=== PATIENT | male | born 1990 | race American Indian/Alaskan Native ===

== ENCOUNTER 2022-03-02 21:41 | Emergency (ER) | payer SELFPAY ==
[2022-03-02 22:09] VITALS: BP 120/66
--- NOTE | 2022-03-02 22:56 | XRay Report ---
CHEST 2 VIEWS INDICATION / CLINICAL INFORMATION: Chest Pain. FINDINGS: SUPPORT DEVICES: None. HEART / MEDIASTINUM: No significant abnormality. LUNGS / PLEURA: No significant pulmonary or pleural abnormality. No pneumothorax. ADDITIONAL FINDINGS: No significant additional findings. IMPRESSION: 1. No acute findings. Signer Name: Vick Pulido MD Signed: 03/02/2022 10:51 PM Workstation Name: [employer]
[2022-03-02 23:18] LABS: Basophils % (Auto) 0.3 % (0.0-1.8); Eosinophils % (Auto) 0.7 % (0.0-4.3); Hematocrit 42.6 % (35.5-45.6); Hemoglobin 13.9 gm/dl (11.8-15.2); Lymphocytes # (Auto) 1.6 K/mm3 (1.2-5.4); Lymphocytes % (Auto) 26.7 % (13.4-35.0); Mean Corpuscular HGB Conc 33 % (32-34); Mean Corpuscular Volume 85 fl (84-94); Monocytes # (Auto) 0.4 K/mm3 (0.0-0.8); Monocytes % (Auto) 7.6 % (0.0-7.3); Platelet Count 225 K/mm3 (140-440); Red Blood Count 4.99 M/mm3 (3.65-5.03); Red Cell Distribution Width 13.9 % (13.2-15.2)
[2022-03-02 23:28] LABS: Alanine Aminotransferase 22 units/L (7-56); Albumin 5.1 g/dL (3.9-5); BUN/Creatinine Ratio 11; Blood Urea Nitrogen 16 mg/dL (9-20); Calcium 9.6 mg/dL (8.4-10.2); Hemolysis Index 8
--- NOTE | 2022-03-04 13:27 | Electrocardiograph Report ---
[facility] Test Date: 2022-03-02 Test Time: 22:05:27 Pat Name: ANAHI RODRIGUEZ Department: Room: Gender: M Poultry Cutter: kamala : 1990 Requested By: ED DOC Order Number: [id number] Reading MD: Idalmis Ritchie Measurements Intervals [place] Rate: 74 P: 65 GA: 173 QRS: 53 QRSD: 82 T: -1 QT: 354 QTc: 393 Interpretive Statements Sinus rhythm Borderline ST elevation, anterior leads No previous ECG available for comparison Electronically Signed On 03-04-2022 13:26:52 EDT by Idalmis Ritchie
== END 2022-03-03 13:27 | disposition left against medical advice (07) ==
LOC: ED 21:41
DX: R07.89 Other chest pain (principal); Z53.21 Procedure and treatment not carried out due to patient leaving prior to being seen by health care provider
CPT/HCPCS: 36415; 71046; 80053; 84484; 85025; 93005